=== PATIENT | male | born 1990 | race Caucasian/White ===

== ENCOUNTER 2017-01-20 23:21 | Emergency (ER) | payer MEDICAID, OTHER, SELFPAY ==
[2017-01-20 23:48] VITALS: BP 146/87
--- NOTE | 2017-01-21 10:39 | EDM.PDOC ---
ED HPI GENERAL MEDICAL PROBLEM - General Chief Complaint: General Stated Complaint: TROUBLE BREATHING Time Seen by Provider: 01/20/17 23:55 Source of Information: Reports: Patient History Limitations: Reports: No Limitations - History of Present Illness INITIAL COMMENTS - FREE TEXT/NARRATIVE: This is a 26yo M here for complaints of numbness of the whole face and anterior chest wall with deeper inspirations. He has felt this was since 1030am and got worried tonight. He denies any prior history of pulmonary issues or cardiovascular issues. He states the symptoms persisted throughout the day and he got worried and came into the ER tonight. He does have a history of smoking Marijuana and had smoked some at around 2pm today thinking it may help relieve his concerns but it did not improve. Patient symptoms are numbness and possibly sob but denies any on exertion. Onset: Sudden Onset Time: 10:30 Duration: Hour(s): Location: Reports: Face, Chest Severity: Mild Improves with: Reports: None Worsens with: Reports: None Associated Symptoms: Reports: No Other Symptoms - Related Data Allergies Allergy/AdvReac Type Severity Reaction Status Date / Time codeine Allergy Headache Verified 01/21/17 00:27 Past Medical History Musculoskeletal History: Reports: Other (See Below) Other Musculoskeletal History: back surgery 2 and a half years ago Social & Family History - Tobacco Use Smoking Status *Q: Current Every Day Smoker Years of Tobacco use: 12 Packs/Tins Daily: 1 - Caffeine Use Caffeine Use: Reports: Coffee - Alcohol Use Date of Last Drink: 01/19/17 Time of Last Drink: 03:00 - Recreational Drug Use Recreational Drug Use: Yes Recreational Drug Type: Reports: Marijuana/Hashish Recreational Drug Use Frequency: Rarely ED ROS GENERAL - Review of Systems Review Of Systems: ROS reveals no pertinent complaints other than HPI. ED EXAM, GENERAL - Physical Exam Exam: See Below Exam Limited By: No Limitations General Appearance: Alert, WD/WN, Anxious Eye Exam: Bilateral Eye: EOMI, PERRL Ears: Normal External Exam Nose: Normal Inspection Throat/Mouth: Normal Inspection Head: Atraumatic, Normocephalic Neck: Normal Inspection, Supple, Non-Tender, Full Range of Motion Respiratory/Chest: No Respiratory Distress, Lungs Clear, Normal Breath Sounds Cardiovascular: Normal Peripheral Pulses, Regular Rate, Rhythm GI/Abdominal: Normal Bowel Sounds, Soft, Non-Tender Back Exam: Normal Inspection, Full Range of Motion Extremities: Normal Inspection, Normal Range of Motion, Non-Tender, No Pedal Edema, Normal Capillary Refill Neurological: Alert, Oriented, CN II-XII Intact, Normal Cognition, Normal Gait, Normal Reflexes, No Motor/Sensory Deficits Psychiatric: Normal Affect, Normal Mood Skin Exam: Warm, Dry, Intact Lymphatic: No Adenopathy Course - Vital Signs Last Recorded V/S: Last Vital Signs Temp 37.2 C 01/20/17 23:46 Pulse 65 01/20/17 23:46 Resp 18 01/20/17 23:46 BP 146/87 H 01/20/17 23:46 Pulse Ox 100 01/20/17 23:46 - Orders/Labs/Meds Labs: Laboratory Tests 01/21/17 01/21/17 01/21/17 Range/Units 00:05 00:05 00:05 WBC 8.8 (4.0-11.0) K/uL RBC 5.44 (4.50-6.50) M/uL Hgb 16.3 (13.0-18.0) g/dL Hct 45.3 (40.0-54.0) % MCV 83 (76-96) fL MCH 30.0 (27.0-32.0) pg MCHC 36.0 H (31.0-35.0) g/dL RDW 12.6 (11.0-16.0) % Plt Count 332 (150-400) K/uL MPV 9.4 (6.0-10.0) fL Neut % (Auto) 50.4 (45.0-70.0) % Lymph % (Auto) 36.4 (20.0-40.0) % [place] % (Auto) 10.7 H (3.0-10.0) % Eos % (Auto) 2.2 (1.0-5.0) % Baso % (Auto) 0.3 (0.0-0.5) % Neut # (Auto) 4.43 (2.00-7.50) K/uL Lymph # (Auto) 3.20 (1.50-4.00) K/uL [place] # (Auto) 0.94 H (0.20-0.80) K/uL Eos # (Auto) 0.19 (0.04-0.40) K/uL Baso # (Auto) 0.03 (0.02-0.10) K/uL D-Dimer, Quantitative < 100 (0-400) ng/mL Sodium 142 (136-145) mmol/L Potassium 4.2 (3.5-5.1) mmol/L Chloride 103 (98-107) mmol/L Carbon Dioxide 26.1 (21.0-32.0) mmol/L Anion Gap 17.1 H (5.0-15.0) mmol/L BUN 11 (8-26) mg/dL Creatinine 1.05 (0.70-1.30) mg/dL Est Cr Clr Drug Dosing 114.54 mL/min Estimated GFR (MDRD) > 60 (>60) MLS/MIN BUN/Creatinine Ratio 10.5 (6-25) Glucose 104 H (74-100) mg/dL Calcium 9.8 (8.5-10.1) mg/dL Total Bilirubin 1.0 (0.0-1.0) mg/dL AST 20 (15-37) U/L ALT 31 (12-78) U/L Alkaline Phosphatase 64 (46-116) U/L Troponin I < 0.017 (0.000-0.060) ng/mL B-Natriuretic Peptide 7 (0-125) pg/mL Total Protein 7.9 (6.4-8.2) g/dL Albumin 4.7 (3.4-5.0) g/dL Globulin 3.2 (2.2-4.2) g/dL Albumin/Globulin Ratio 1.5 (0.8-2.0) TSH, Ultra Sensitive (0.358-3.740) uIU/mL 01/21/17 Range/Units 00:05 WBC (4.0-11.0) K/uL RBC (4.50-6.50) M/uL Hgb (13.0-18.0) g/dL Hct (40.0-54.0) % MCV (76-96) fL MCH (27.0-32.0) pg MCHC (31.0-35.0) g/dL RDW (11.0-16.0) % Plt Count (150-400) K/uL MPV (6.0-10.0) fL Neut % (Auto) (45.0-70.0) % Lymph % (Auto) (20.0-40.0) % [place] % (Auto) (3.0-10.0) % Eos % (Auto) (1.0-5.0) % Baso % (Auto) (0.0-0.5) % Neut # (Auto) (2.00-7.50) K/uL Lymph # (Auto) (1.50-4.00) K/uL [place] # (Auto) (0.20-0.80) K/uL Eos # (Auto) (0.04-0.40) K/uL Baso # (Auto) (0.02-0.10) K/uL D-Dimer, Quantitative (0-400) ng/mL Sodium (136-145) mmol/L Potassium (3.5-5.1) mmol/L Chloride (98-107) mmol/L Carbon Dioxide (21.0-32.0) mmol/L Anion Gap (5.0-15.0) mmol/L BUN (8-26) mg/dL Creatinine (0.70-1.30) mg/dL Est Cr Clr Drug Dosing mL/min Estimated GFR (MDRD) (>60) MLS/MIN BUN/Creatinine Ratio (6-25) Glucose (74-100) mg/dL Calcium (8.5-10.1) mg/dL Total Bilirubin (0.0-1.0) mg/dL AST (15-37) U/L ALT (12-78) U/L Alkaline Phosphatase (46-116) U/L Troponin I (0.000-0.060) ng/mL B-Natriuretic Peptide (0-125) pg/mL Total Protein (6.4-8.2) g/dL Albumin (3.4-5.0) g/dL Globulin (2.2-4.2) g/dL Albumin/Globulin Ratio (0.8-2.0) TSH, Ultra Sensitive 1.066 (0.358-3.740) uIU/mL Departure - Departure Time of Disposition: 02:00 Disposition: Home, Self-Care 01 Condition: Good Clinical Impression: Numbness - Discharge Information Instructions: Reactive Airway Disease, Child, [id number] Referrals: PCP,None [Primary Care Provider] - Forms: ED Department Discharge Care Plan Goals: If symptoms worsen or continue return to clinic - Problem List Review Problem List Initiated/Reviewed/Updated: Yes - Assessment/Plan Plan: Counseled extensively on negative results or findings and that these symptoms are possibly from some reactive airway disease. Patient to f/u with PCP or in ER if symptoms persist or worsen. Patient understands close monitoring and f/u as directed. Patient to have CT chest done if symptoms persist or worsen and patient agrees with plan.
--- NOTE | 2017-01-21 10:58 | CR ---
DATE OF SERVICE: 01/21/17 CLINICAL DATA: SOB, pressure, numbness on deep inspiration. PA AND LATERAL CHEST: No prior films are available for comparison. The heart size is normal. The lungs are clear. The exam is otherwise negative. IMPRESSION: Normal exam. [id number] [facility]
== END 2017-01-21 00:56 | disposition home or self-care (01) ==
LOC: LB.ED 23:21
DX: R20.0 Anesthesia of skin (principal); Z88.5 Allergy status to narcotic agent; F17.210 Nicotine dependence, cigarettes, uncomplicated
CPT/HCPCS: 36415; 71020; 80053; 83880; 84443; 84484; 85025; 85379; 99283; 99284

== ENCOUNTER 2017-03-16 16:50 | Emergency (ER) | payer MEDICAID, SELFPAY ==
[2017-03-16 17:05] VITALS: BP 156/92
--- NOTE | 2017-03-16 17:13 | EDM.PDOC ---
ED HPI GENERAL MEDICAL PROBLEM - General Chief Complaint: General Stated Complaint: FEEL FUNNY Time Seen by Provider: 03/16/17 16:55 Source of Information: Reports: Patient History Limitations: Reports: No Limitations - History of Present Illness INITIAL COMMENTS - FREE TEXT/NARRATIVE: According to patient he claims that he feels funny. He claims he feels very anxious and , his heart is racing and he feels short of breath. Pt is almost crying in the exam room. Pt was seen on 03/07/17 for anxiety and he does smoke. Hence he was started on wellbutrin 100mg daily for 1 wk and to increase to 100mg twice daily since today. Pt claims this started suddenly, about 2 hrs ago. No chest pain or thickness. No fever or chills. Pt claims he did drink a lot last night and is concerned if it is his medication make him feel this way. He has not had anxiety episode since he has been on wellbutrin, until today. Onset: Today Onset Date: 03/16/17 Onset Time: 15:30 Improves with: Reports: None Worsens with: Reports: None Associated Symptoms: Reports: Nausea/Vomiting, Shortness of Breath, Weakness. Denies: Confusion, Chest Pain, Cough, Diaphoresis, Fever/Chills, Headaches, Rash , Seizure, Syncope - Related Data Allergies Allergy/AdvReac Type Severity Reaction Status Date / Time codeine Allergy Headache Verified 01/21/17 00:27 Past Medical History Musculoskeletal History: Reports: Other (See Below) Other Musculoskeletal History: back surgery 2 and a half years ago Social & Family History - Tobacco Use Smoking Status *Q: Current Every Day Smoker Years of Tobacco use: 12 Packs/Tins Daily: 1 - Caffeine Use Caffeine Use: Reports: Coffee - Recreational Drug Use Recreational Drug Use: Yes Recreational Drug Type: Reports: Marijuana/Hashish Recreational Drug Use Frequency: Rarely ED ROS GENERAL - Review of Systems Review Of Systems: See Below Constitutional: Reports: Diaphoresis. Denies: Fever, Chills HEENT: Denies: Rhinitis, Throat Pain, Throat Swelling Respiratory: Reports: Shortness of Breath. Denies: Cough, Sputum Cardiovascular: Reports: Lightheadedness, Palpitations. Denies: Chest Pain GI/Abdominal: Reports: Nausea. Denies: Abdominal Pain, Vomiting : Denies: Dysuria, Flank Pain, Frequency Musculoskeletal: Denies: Joint Pain, Joint Swelling Skin: Denies: Pruritis, Rash Neurological: Reports: Dizziness, Numbness, Tingling, Weakness. Denies: Confusion, Headache, Paresthesia, Seizure, Syncope, Tremors, Difficulty Walking ED EXAM, GENERAL - Physical Exam Exam: See Below Exam Limited By: No Limitations General Appearance: Alert, WD/WN, Anxious, Other (Pt is crying and hyperventilating) Eye Exam: Bilateral Eye: EOMI, PERRL Ears: Normal External Exam, Normal Canal, Hearing Grossly Normal, Normal TMs Nose: Normal Inspection, Normal Mucosa, No Blood Throat/Mouth: Normal Inspection, Normal Lips, Normal Teeth, Normal Gums, Normal Oropharynx, Normal Voice, No Airway Compromise Head: Atraumatic, Normocephalic Neck: Normal Inspection, Supple, Non-Tender, Full Range of Motion Respiratory/Chest: Lungs Clear, Normal Breath Sounds, Other (tachypnec) Cardiovascular: Tachycardia (130) GI/Abdominal: Normal Bowel Sounds, Soft, Non-Tender, No Organomegaly, No Distention, No Abnormal Bruit, No Mass Extremities: Normal Inspection, Normal Range of Motion, Non-Tender, Normal Capillary Refill, No Pedal Edema Neurological: Alert, Oriented, CN II-XII Intact, Normal Cognition, Normal Gait, Normal Reflexes, No Motor/Sensory Deficits Psychiatric: Anxious Course - Vital Signs Text/Narrative:: Pt had panic attack, and was in hyperventilation syndrome. Pt reassured, discussed the mechanism of anxiety attacks. Also he was made to breath into a paper bag for few minutes. His heart rate improved , his blood pressure came down gradually. Pt started to feel better. His cbc and CMP are back and Within normal limits. Reassured again. Advised to cut down on smoking too. His vitals are stable. I have advised him to folllow up in clinic in 3 wks for recheck. Last Recorded V/S: Last Vital Signs Temp 99.1 F 03/16/17 16:50 Pulse 101 H 03/16/17 17:05 Resp 24 H 03/16/17 16:50 BP 156/92 H 03/16/17 17:05 Pulse Ox 100 03/16/17 17:05 - Orders/Labs/Meds Orders: Active Orders 24 hr Category Date Time Status CBC WITH AUTO DIFF [HEME] Stat Lab 03/16/17 17:01 Ordered COMPREHENSIVE METABOLIC PN,CMP [CHEM] Stat Lab 03/16/17 17:01 Ordered Departure - Departure Time of Disposition: 17:30 Disposition: Home, Self-Care 01 Condition: Fair Clinical Impression: Anxiety attack - Discharge Information - Problem List & Annotations (1) Anxiety attack SNOMED Code(s): 774634602 Code(s): F41.0 - PANIC DISORDER WITHOUT AGORAPHOBIA Status: Acute - Problem List Review Problem List Initiated/Reviewed/Updated: Yes - My Orders Last 24 Hours: My Active Orders 03/16/17 17:01 CBC WITH AUTO DIFF [HEME] Stat COMPREHENSIVE METABOLIC PN,CMP [CHEM] Stat - Assessment/Plan Last 24 Hours: My Active Orders 03/16/17 17:01 CBC WITH AUTO DIFF [HEME] Stat COMPREHENSIVE METABOLIC PN,CMP [CHEM] Stat Assessment:: Anxiety attack Plan: Pt had panic attack, and was in hyperventilation syndrome. Pt reassured, discussed the mechanism of anxiety attacks. Also he was made to breath into a paper bag for few minutes. His heart rate improved , his blood pressure came down gradually. Pt started to feel better. His cbc and CMP are back and Within normal limits. Reassured again. Advised to cut down on smoking too. His vitals are stable. I have advised him to follow up in clinic in 3 wks for recheck.
== END 2017-03-16 17:35 | disposition home or self-care (01) ==
LOC: LB.ED 16:50
DX: F41.9 Anxiety disorder, unspecified (principal); F17.210 Nicotine dependence, cigarettes, uncomplicated
CPT/HCPCS: 36415; 80053; 85025; 99283; 99284

== ENCOUNTER 2020-11-04 00:15 | Emergency (ER) | payer BC ==
[2020-11-04] MEDS ORDERED: Lidocaine 2% with EPINEPHrine 1:100,000 20 ML MDV INJECT ONE (00:30)
--- NOTE | 2020-11-04 00:52 | EDM.PDOC ---
ED HPI GENERAL MEDICAL PROBLEM - General Chief Complaint: General Stated Complaint: Toothache Time Seen by Provider: 11/04/20 00:35 Source of Information: Reports: Patient History Limitations: Reports: No Limitations - History of Present Illness INITIAL COMMENTS - FREE TEXT/NARRATIVE: patient presented to the ER with a c/o toothache for 2 days. Reports cavities for several months but pain got worse lately and no OTC pain meds has been helping. No fever or chills. Pain 10 out of 10 no facial swelling . has not been able to see a dentist for this. Onset: Gradual Duration: Day(s): (2) Upper Tooth/Teeth Pain Score (Numeric/FACES): 10 - Related Data Allergies Allergy/AdvReac Type Severity Reaction Status Date / Time codeine Allergy Headache Verified 01/21/17 00:27 Home Meds: Home Meds LORazepam [Ativan] 1 mg PO DAILY 11/04/20 [History] Past Medical History Musculoskeletal History: Reports: Other (See Below) Other Musculoskeletal History: back surgery 2 and a half years ago Social & Family History - Tobacco Use Tobacco Use Status *Q: Current Every Day Tobacco User Years of Tobacco use: 12 Packs/Tins Daily: 1 - Caffeine Use Caffeine Use: Reports: Coffee, Soda - Recreational Drug Use Recreational Drug Use: No ED ROS GENERAL - Review of Systems Review Of Systems: See Below Constitutional: Reports: No Symptoms Respiratory: Reports: No Symptoms Cardiovascular: Reports: No Symptoms Musculoskeletal: Reports: No Symptoms Skin: Reports: No Symptoms Neurological: Reports: No Symptoms ED EXAM, GENERAL - Physical Exam Exam: See Below Exam Limited By: No Limitations General Appearance: Alert, WD/WN Eye Exam: Bilateral Eye: EOMI Throat/Mouth: Normal Teeth, Other (mild TTP over the right permolar , no gingival swelling no drainage ) Head: Atraumatic Neck: Normal Inspection Cardiovascular: Regular Rate, Rhythm Neurological: Alert, Oriented, No Motor/Sensory Deficits Psychiatric: Normal Affect, Anxious Course - Re-Assessments/Exams Free Text/Narrative Re-Assessment/Exam: superior alveolar nerve block with lidocaine was performed with immediate pain relief - down to 2 ( from 10 ) IM toadol and IM Rocephin were given prescription of amoxicillin PO Departure - Departure Time of Disposition: 01:02 Disposition: Home, Self-Care 01 Condition: Good Clinical Impression: Toothache - Discharge Information *PRESCRIPTION DRUG MONITORING PROGRAM REVIEWED*: Not Applicable *COPY OF PRESCRIPTION DRUG MONITORING REPORT IN PATIENT SARAI: Not Applicable - Problem List & Annotations (1) Toothache SNOMED Code(s): 93490874 Code(s): K08.89 - OTHER SPECIFIED DISORDERS OF TEETH AND SUPPORTING STRUCTURES Status: Acute Priority: Medium - Problem List Review Problem List Initiated/Reviewed/Updated: Yes - Assessment/Plan Plan: - take antibiotics as prescribed - follow up with a dentist in 3-5 days - recommend smoking cessation - return to the ER if any fever or problems with swallowing
[2020-11-04] MEDS: Ketorolac 60 MG/2 ML SDV IM ONE (01:00)
[2020-11-04] MEDS ORDERED: Amoxicillin 500 MG Cap ONE (01:00)
[2020-11-04] MEDS: cefTRIAXone 500 MG Vial IM ONE (01:00)
[2020-11-04 01:01] VITALS: BP 148/100; PULSE 88
== END 2020-11-04 01:15 | disposition home or self-care (01) ==
LOC: LB.ED 00:15
DX: K08.89 Other specified disorders of teeth and supporting structures (principal); Z72.0 Tobacco use; Z88.5 Allergy status to narcotic agent
CPT/HCPCS: 64400; 99282; A9270; J0696; J1885